=== PATIENT | female | born 1970 | race Caucasian/White ===

== ENCOUNTER 2025-01-17 14:22 | Emergency (ER) | payer BC ==
[~2025-01-17] VITALS: Ht 172.7 cm; Wt 79.9 kg
[2025-01-17 14:39] VITALS: BP 124/90; PULSE 108; TEMP 97.3
[2025-01-17 14:40] VITALS: RESP 18; O2SAT 97
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
--- NOTE | 2025-01-17 15:28 | DVH ---
EXAM: CT LS SPINE WO CONTRAST HISTORY: [facility] COMPARISON: None CTDIvol 24.45 mGy, DLP 838.01 mGy*cm. TECHNIQUE: Multiple axial CT images of the spine were obtained using bone algorithm. Axial and rushing l reformatting was done. Bone and soft tissue windows were reviewed. FINDINGS: No evidence of definite acute fracture, spinal dislocation, or significant appearing acute subluxatio n is seen. Multilevel degenerative changes of the spine. Grade 2 anterolisthesis of L3 on L4. Degenerative disc space narrowing at L3-L4. 0.2 cm nonobstructing stone in the left kidney lower pole. IMPRESSION: No definite CT evidence of acute fracture or dislocation of the bony lumbar spine. Degenerative changes of the spine with chronic grade 2 anterolisthesis of L3 on L4.
--- NOTE | 2025-01-17 15:34 | DVH ---
EXAM: CT CERVICAL WITHOUT CONTRAST INDICATION: [facility] [place] EXAM DATE: 01/17/2025 02:53 PM COMPARISON: None TECHNIQUE: Multiple axial CT images of the cervical spine were obtained using bone algorithm. Sagitta l and coronal reformatting was done. Bone and soft tissue windows were reviewed. Radiation Dose Information: CT Dose: CTDI volume is 24.8 mGy. Dose-length product is 588.1 mGy*cm FINDINGS: The cervical alignment is intact. The curvature is maintained. No acute cervical spine fracture is id entified. The vertebral body heights are intact. No suspicious osseous lesions are identified. No significant degenerative changes are identified. No evidence of significant spinal stenosis. There is multilevel neural foraminal stenosis. There is no prevertebral soft tissue swelling. IMPRESSION: 1. No evidence of acute cervical spine fracture or traumatic malalignment. 2. Degenerative changes in the cervical spine. All CT scans at this medical facility are performed using dose modulation techniques as appropriate t o a performed exam including the following: Automated exposure control was utilized; adjustment of th e MA and/or KV according to patient size; and use of iterative reconstruction technique.
[2025-01-17] MEDS ORDERED: CYCL-839 PO (15:46)
== END 2025-01-17 15:51 | disposition home or self-care (01) ==
LOC: ER 14:22
DX: S39.012A Strain of muscle, fascia and tendon of lower back, initial encounter (principal); S16.1XXA Strain of muscle, fascia and tendon at neck level, initial encounter; E11.9 Type 2 diabetes mellitus without complications; I10 Essential (primary) hypertension; E78.5 Hyperlipidemia, unspecified; Z87.442 Personal history of urinary calculi; Z90.49 Acquired absence of other specified parts of digestive tract; Z98.51 Tubal ligation status; Z98.890 Other specified postprocedural states; V49.9XXA Car occupant (driver) (passenger) injured in unspecified traffic accident, initial encounter; Y93.89 Activity, other specified; Y92.89 Other specified places as the place of occurrence of the external cause; Y99.8 Other external cause status
CPT/HCPCS: 72125; 72131